=== PATIENT | male | born 1985 | race Hispanic/Latino ===

== ENCOUNTER 2018-11-23 09:58 | Emergency (ER) | payer BC ==
[2018-11-23 10:48] LABS: Absolute Lymphocytes (CBC) 1.9 K/uL (0.7-4.9); Basophils % 0.4 % (0-1.3); Hematocrit 51.6 % (39.6-49.0); Lymphocytes % 20.4 % (15.3-44.8); RBC Red Blood Cell Count 5.83 M/uL (4.33-5.43)
--- NOTE | 2018-11-23 11:18 | RAD REPORT ---
EXAM DESCRIPTION: US - Abdomen Exam Limited - 11/23/2018 11:01 am CLINICAL HISTORY: ABD PAIN COMPARISON: Abdomen Exam Complete dated 01/14/2016 FINDINGS: The gallbladder demonstrates multiple shadowing gallstones. The gallbladder appears quite distended. The gallbladder wall is upper limit of normal measuring 4 mm. The common bile duct is norm al measuring 5 mm. The liver demonstrates no findings of intrahepatic biliary dilatation. IMPRESSION: Cholelithiasis with significantly distended gallbladder and upper limit of normal gallbl adder wall. This raises suspicion for early acute cholecystitis.
[2018-11-23 11:19] LABS: ALT/SGPT 27 U/L (12-78); AST/SGOT 13 U/L (15-37); Albumin 4.4 g/dL (3.4-5.0); Alkaline Phosphatase 71 U/L (45-117); BUN Blood Urea Nitrogen 7 mg/dL (7-18); Bicarbonate 26 mmol/L (21-32); Bilirubin Direct 0.3 mg/dL (0-0.2); Bilirubin Total 1.4 mg/dL (0.2-1.0); Glucose Level 105 mg/dL (74-106); Lipase 65 U/L (73-393); Potassium 3.7 mmol/L (3.5-5.1); Protein, Total 8.5 g/dL (6.4-8.2); Sodium Level 137 mmol/L (136-145)
--- NOTE | 2018-11-23 11:22 | RAD REPORT ---
EXAM DESCRIPTION: CTAbdomen Pelvis W Contrast - 11/23/2018 11:06 am CLINICAL HISTORY: Abdominal pain. ABD PAIN COMPARISON: No comparisons TECHNIQUE: Biphasic CT imaging of the abdomen and pelvis was performed with 100 ml non-ionic IV cont rast. All CT scans are performed using dose optimization technique as appropriate and may include automated exposure control or mA/KV adjustment according to patient size. FINDINGS: The lung bases are clear. Multiple gallstones are present in the gallbladder which appears distended with a small amount of daniella rounding inflammation seen in the pericholecystic fat. The liver, spleen, pancreas, adrenal glands and kidneys are within normal limits. No bowel obstruction, free air, free fluid or abscess. The appendix appears mildly dilated and infla med measuring up to 13 mm. No evidence of significant lymphadenopathy. No suspicious bony findings. IMPRESSION: Cholelithiasis with gallbladder distention and a small amount of pericholecystic inflamm atory changes is suspicious for early/acute cholecystitis. The appendix appears dilated to 13 mm with mild surrounding inflammation suggesting early acute appen dicitis as well. Advise correlation with right lower quadrant symptomology.
--- NOTE | 2018-11-23 12:14 | ER ---
Nurse's Notes [facility] Name: Antwan Martines Age: 33 yrs Sex: Male : 1985 Arrival Date: 11/23/2018 Time: 10:03 Bed 5 Private MD: Osmel Juan S Diagnosis: Abdominal and pelvic pain;Cholelithiasis Presentation: 11/23 10:15 Presenting complaint: Patient states: RUQ pain intermittent since Thursday morning. iw Transition of care: patient was not received from another setting of care. Onset of symptoms was November 21, 2018. Risk Assessment: Do you want to hurt yourself or someone else? Patient reports no desire to harm self or others. Initial Sepsis Screen: Does the patient meet any 2 criteria? No. Patient's initial sepsis screen is negative. Does the patient have a suspected source of infection? No. Patient's initial sepsis screen is negative. Care prior to arrival: None. 10:15 Method Of Arrival: Ambulatory iw 10:15 Acuity: SCARLETT 3 iw Historical: - Allergies: 10:16 No Known Allergies; iw - Home Meds: 10:16 None [Active]; iw - PMHx: 10:16 None; iw - PSHx: 10:16 None; iw - Immunization history:: Adult Immunizations not up to date. - Social history:: Smoking status: Patient/guardian denies using tobacco. - Ebola Screening: : Patient negative for fever greater than or equal to 101.5 degrees Fahrenheit, and additional compatible Ebola Virus Disease symptoms Patient denies exposure to infectious person Patient denies travel to an Ebola-affected area in the 21 days before illness onset No symptoms or risks identified at this time. Screenin:22 Abuse screen: Denies threats or abuse. Nutritional screening: No deficits noted. tw2 Tuberculosis screening: No symptoms or risk factors identified. Fall Risk None identified. Assessment: 10:36 General: Appears in no apparent distress. well groomed, well developed, well nourished, sg Behavior is calm, cooperative, appropriate for age. Pain: Complains of pain in epigastric area Quality of pain is described as aching, "dull and constant". Neuro: Level of Consciousness is awake, alert, obeys commands, Oriented to person, place, time, situation, Moves all extremities. Gait is steady, Speech is normal, Facial symmetry appears normal. Cardiovascular: Patient's skin is warm and dry. Chest pain is denied. Respiratory: Airway is patent Respiratory pattern is regular, symmetrical. GI: Abdomen is round non-distended, Bowel sounds present X 4 quads. Abd is soft and non tender X 4 quads. Reports upper abdominal pain. : No signs and/or symptoms were reported regarding the genitourinary system. EENT: No signs and/or symptoms were reported regarding the EENT system. Derm: Skin is pink, warm \\T\\ dry. Musculoskeletal: Circulation, motion, and sensation intact. Range of motion: intact in all extremities. 12:10 Reassessment: Patient appears in no apparent distress at this time. No changes from tw2 previously documented assessment. Patient and/or family updated on plan of care and expected duration. Pain level reassessed. Patient is alert, oriented x 3, equal unlabored respirations, skin warm/dry/pink. 12:44 Reassessment: Patient appears in no apparent distress at this time. Patient and/or iw family updated on plan of care and expected duration. Pain level reassessed. Patient is alert, oriented x 3, equal unlabored respirations, skin warm/dry/pink. Patient denies pain at this time. Patient states feeling better. Vital Signs: 10:16 BP 146 / 97; Pulse 91; Resp 16; Temp 98.2; Pulse Ox 100% on R/A; Weight 100.7 kg; iw Height 5 ft. 11 in. (180.34 cm); Pain 5/10; 10:43 BP 139 / 98; Pulse 79; Resp 17; Pulse Ox 97% on R/A; sg 12:10 BP 126 / 91; Pulse 77; Resp 17; Pulse Ox 97% on R/A; tw2 10:16 Body Mass Index 30.96 (100.70 kg, 180.34 cm) iw ED Course: 10:03 Patient arrived in ED. cl3 10:05 Osmel Juan MD is Private Physician. cl3 10:06 Bed in low position. Call light in reach. tw2 10:13 Adalid Garcia MD is Attending Physician. kdr 10:16 Triage completed. iw 10:16 Arm band placed on. iw 10:18 Thanh Menendez RN is Primary Nurse. sg 10:20 Inserted saline lock: 20 gauge in right antecubital area, using aseptic technique. sg Blood collected. 10:30 Initial lab(s) drawn, by me, sent to lab. sg 10:[address] Scan, Awaiting: and ultrasound. sg 11:03 US Abdomen Limited In Process Unspecified. EDMS 11:07 CT Abd/Pelvis - IV Contrast Only In Process Unspecified. EDMS 11:45 Consulted physician to see patient. . sg 12:12 Jose Diaz MD is Referral Physician. kdr 12:44 No provider procedures requiring assistance completed. IV discontinued, intact, iw bleeding controlled, No redness/swelling at site. Pressure dressing applied. Administered Medications: No medications were administered Outcome: 12:13 Discharge ordered by . kdr 12:44 Discharged to home ambulatory. iw 12:44 Condition: good 12:44 Discharge instructions given to patient, Instructed on discharge instructions, follow up and referral plans. medication usage, Demonstrated understanding of instructions, follow-up care, medications, Prescriptions given X 4. 12:45 Patient left the ED. iw Signatures: Dispatcher [employer] EDMS Thanh Menendez, RN TOY Adalid Garcia MD MD kdr Kristin Monson, RN TOY iw Sissy Prasad RN RN Brittny Rosenberg3
--- NOTE | 2018-11-23 12:14 | EDPHYS ---
Physician Documentation [facility] Name: Antwan Martines Age: 33 yrs Sex: Male : 1985 Arrival Date: 11/23/2018 Time: 10:03 Bed 5 Private MD: Osmel Juan S ED Physician Adalid Garcia HPI: 11/23 10:27 This 33 yrs old Male presents to ER via Ambulatory with complaints of Pain, kdr Abdominal Pain. 10:27 The patient presents with abdominal pain in the right upper quadrant. Onset: The kdr symptoms/episode began/occurred Thursday morning. The symptoms do not radiate. Associated signs and symptoms: Pertinent positives: nausea and vomiting. The symptoms are described as achy, burning, intermittent, vague, waxing/waning. Modifying factors: The symptoms are alleviated by nothing, the symptoms are aggravated by May be worsened with food. Since Thursday, he has not been eating anything but fruit - he is afraid to eat any other food. Severity of pain: At its worst the pain was moderate in the emergency department the pain has improved moderately, is a 2 / 10. The patient has experienced a previous episode, A few years ago, he had similar problem and was diagnosed with gall stones. The patient has not recently seen a physician. Historical: - Allergies: 10:16 No Known Allergies; iw - Home Meds: 10:16 None [Active]; iw - PMHx: 10:16 None; iw - PSHx: 10:16 None; iw - Immunization history:: Adult Immunizations not up to date. - Social history:: Smoking status: Patient/guardian denies using tobacco. - Ebola Screening: : Patient negative for fever greater than or equal to 101.5 degrees Fahrenheit, and additional compatible Ebola Virus Disease symptoms Patient denies exposure to infectious person Patient denies travel to an Ebola-affected area in the 21 days before illness onset No symptoms or risks identified at this time. ROS: 10:27 Constitutional: Negative for fever, chills, and weight loss, Eyes: Negative for injury, kdr pain, redness, and discharge, ENT: Negative for injury, pain, and discharge, Neck: Negative for injury, pain, and swelling, Cardiovascular: Negative for chest pain, palpitations, and edema, Respiratory: Negative for shortness of breath, cough, wheezing, and pleuritic chest pain, Back: Negative for injury and pain, : Negative for injury, bleeding, discharge, and swelling, MS/Extremity: Negative for injury and deformity, Skin: Negative for injury, rash, and discoloration, Neuro: Negative for headache, weakness, numbness, tingling, and seizure activity. Psych: Negative for depression, anxiety, suicide ideation, homicidal ideation, and hallucinations, Allergy/Immunology: Negative for hives, rash, and allergies, Endocrine: Negative for neck swelling, polydipsia, polyuria, polyphagia, and marked weight changes, Hematologic/Lymphatic: Negative for swollen nodes, abnormal bleeding, and unusual bruising. 10:27 Abdomen/GI: Positive for abdominal pain, nausea and vomiting, Negative for constipation, abdominal cramps, abdominal distension, anorexia, dysphagia, hematemesis, black/tarry stool, rectal pain, rectal bleeding, bowel incontinence. Exam: 10:27 Constitutional: This is a well developed, well nourished patient who is awake, alert, kdr and in no acute distress. Head/Face: Normocephalic, atraumatic. Eyes: Pupils equal round and reactive to light, extra-ocular motions intact. Lids and lashes normal. Conjunctiva and sclera are non-icteric and not injected. Cornea within normal limits. Periorbital areas with no swelling, redness, or edema. Neck: Trachea midline, no thyromegaly or masses palpated, and no cervical lymphadenopathy. Supple, full range of motion without nuchal rigidity, or vertebral point tenderness. No Meningismus. Chest/axilla: Normal chest wall appearance and motion. Nontender with no deformity. No lesions are appreciated. Cardiovascular: Regular rate and rhythm with a normal S1 and S2. No gallops, murmurs, or rubs. Normal PMI, no JVD. No pulse deficits. Respiratory: Lungs have equal breath sounds bilaterally, clear to auscultation and percussion. No rales, rhonchi or wheezes noted. No increased work of breathing, no retractions or nasal flaring. Back: No spinal tenderness. No costovertebral tenderness. Full range of motion. Skin: Warm, dry with normal turgor. Normal color with no rashes, no lesions, and no evidence of cellulitis. MS/ Extremity: Pulses equal, no cyanosis. Neurovascular intact. Full, normal range of motion. Neuro: Awake and alert, GCS 15, oriented to person, place, time, and situation. Cranial nerves II-XII grossly intact. Motor strength 5/5 in all extremities. Sensory grossly intact. Cerebellar exam normal. Normal gait. Psych: Awake, alert, with orientation to person, place and time. Behavior, mood, and affect are within normal limits. 10:27 Abdomen/GI: Inspection: abdomen appears normal, Bowel sounds: normal, Palpation: soft, nontender, in all quadrants, Indicators: McBurney's point is not tender, Davis's sign is negative. Vital Signs: 10:16 BP 146 / 97; Pulse 91; Resp 16; Temp 98.2; Pulse Ox 100% on R/A; Weight 100.7 kg; iw Height 5 ft. 11 in. (180.34 cm); Pain 5/10; 10:43 BP 139 / 98; Pulse 79; Resp 17; Pulse Ox 97% on R/A; sg 12:10 BP 126 / 91; Pulse 77; Resp 17; Pulse Ox 97% on R/A; tw2 10:16 Body Mass Index 30.96 (100.70 kg, 180.34 cm) iw MDM: 10:27 Data reviewed: vital signs, nurses notes, lab test result(s), radiologic studies. kdr Counseling: I had a detailed discussion with the patient and/or guardian regarding: the historical points, exam findings, and any diagnostic results supporting the discharge/admit diagnosis, lab results, radiology results, the need for outpatient follow up. 12:13 Patient medically screened. [facility] 11/23 10:18 Order name: Basic Metabolic Panel; Complete Time: kdr 11/23 10:18 Order name: CBC with Diff; Complete Time: kdr 11/23 10:18 Order name: Creatinine for Radiology; Complete Time: kdr 11/23 10:18 Order name: Hepatic Function; Complete Time: kdr 11/23 10:18 Order name: Lipase; Complete Time: kdr 11/23 10:25 Order name: US Abdomen Limited; Complete Time: kdr 11/23 10:18 Order name: IV Saline Lock; Complete Time: kdr 11/23 10:18 Order name: Labs collected and sent; Complete Time: : kdr 11/23 10:26 Order name: CT Abd/Pelvis - IV Contrast Only; Complete Time: 11:31 kdr Administered Medications: No medications were administered Disposition: 11/23/18 12:13 Discharged to Home. Impression: Abdominal and pelvic pain, Cholelithiasis. - Condition is Stable. - Discharge Instructions: Abdominal Pain, Adult, [id number]. - Prescriptions for Bentyl 20 mg Oral Tablet - take 1 tablet by ORAL route every 6 hours As needed; 20 tablet. Cipro 500 mg Oral Tablet - take 1 tablet by ORAL route every 12 hours for 10 days; 20 tablet. Flagyl 500 mg Oral Tablet - take 1 tablet by ORAL route every 6 hours for 10 days; 40 tablet. Zofran 4 mg Oral Tablet - take 1 tablet by ORAL route every 4-6 hours As needed; 20 tablet. - Medication Reconciliation Form, Thank You Letter, Antibiotic Education, Work release form form. - Follow up: Jose Diaz MD; When: 1 - 2 days; Reason: If symptoms return, Further diagnostic work-up, Recheck today's complaints, Continuance of care, Re-evaluation by your physician. - Problem is new. - Symptoms have improved. Signatures: Dispatcher [employer] EDMS Adalid Garcia MD MD kdr Kristin Monson RN RN iw Corrections: (The following items were deleted from the chart) 12:45 12:13 11/23/2018 12:13 Discharged to Home. Impression: Abdominal and pelvic pain; iw Cholelithiasis. Condition is Stable. Forms are Work release form, Medication Reconciliation Form, Thank You Letter, Antibiotic Education, Prescription Opioid Use. Follow up: Dr. Jose Diaz; When: 1 - 2 days; Reason: If symptoms return, Further diagnostic work-up, Recheck today's complaints, Continuance of care, Re-evaluation by your physician. Problem is new. Symptoms have improved. kdr
--- NOTE | 2018-11-23 17:52 | CON ---
Date of Consultation: 11/23/2018 Reason For Consultation: Abdominal pain. History Of Present Illness: The patient is a 33-year-old gentleman who presented to the emergency ro om with right upper quadrant abdominal pain, started on Thursday associated with nausea. It does not r adiate to the back and he had 1 episode of vomiting. He has had a similar episode in the past, coupl e of years ago, was told he had gallstones at that time. He states that he has been eating fruit bec ause he is afraid the pain would get worse if he eats anything else. He has no sore throat, runny no se, cough, headaches, or dizziness. No chest pain. No fever or chills. No right lower quadrant aminata n at all. Review of Systems: Otherwise unremarkable. Past Medical History: Negative. Past Surgical History: Negative. Allergies: NONE. Social History: Patient does not smoke. Drinks occasionally. Family History: Noncontributory. Physical Examination: VITAL SIGNS: Stable. Blood pressure is slightly elevated at 146/97. He is afebrile. GENERAL: He is awake, alert, and oriented x3. HEAD AND NECK: Cranial nerves 2 through 12 grossly within normal limits. No neck masses. No JVD. Throat clear. NECK: Supple. No evidence of icterus. CHEST: Clear. HEART: S1 and S2. ABDOMEN: Soft, nondistended, very little tenderness in the right upper quadrant. No rebound, rigidi ty, or guarding. No Davis sign. There is no tenderness at all in the right lower quadrant. EXTREMITIES: Adequately perfused. Nontender. NEURO: Nonfocal. Imaging Studies/laboratory Data: Abdominal ultrasound reviewed, shows cholelithiasis with significan tly distended gallbladder and upper limit of normal gallbladder wall, raises suspicion for early acut e cholecystitis. He had abdominal and pelvis CT as well, which showed cholelithiasis with gallbladde r distention, small amount of pericholecystic inflammatory changes suspicious for early acute cholecy stitis. Appendix appears dilated to 13 mm with mild stranding. Inflammation suggesting early acute appendicitis as well. I advised correlation with right lower quadrant symptomatology. His white cou nt is 9.4. There is no left shift. His chemistries reviewed. His AST, ALT, alkaline phosphatase ar e totally normal and lipase is 65. His total bilirubin is 1.4 and direct bilirubin is 0.3. Assessment: A 33-year-old gentleman with probable chronic cholecystitis and cholelithiasis as well a s chronic appendicitis. Recommendation: I advised the patient that he should have a cholecystectomy done today as there is r adiographic evidence of acute appendicitis; however, clinically, he is not in any discomfort at this time. He does not want to do surgery. I advised him of the risk of not doing the surgery. He under stood and he says that he will sleep on it and then he will call my office to make an appointment as an outpatient. Therefore, I discussed the case with the ER physician. We will discharge him with an tibiotics and GI cocktail. I advised him should he get worse, to come back to the emergency room and follow up with me as an outpatient. Again, the risks, benefits, and alternatives of not doing the s urgery were explained in detail to the patient. IVETH/ARTI Voice ID: [id number] Report ID: [id number]
== END 2018-11-23 12:45 | disposition home or self-care (01) ==
LOC: ER 09:58
DX: K80.20 Calculus of gallbladder without cholecystitis without obstruction (principal)
CPT/HCPCS: 36415; 74177; 76705; 80048; 80076; 83690; 85025; 99284; Q9967

== ENCOUNTER 2018-11-24 14:42 | Observation (INO) | payer BC ==
[2018-11-24] MEDS ORDERED: ONDANSETRON 4 MG (ODT) TAB PO PRN (16:00)
[2018-11-24] MEDS ORDERED: NACHLORIDE 0.45% 1,000 ML IV SCH (16:00)
[2018-11-24] MEDS ORDERED: LOPERAMIDE HCL 2 MG CAPSULE PO PRN (16:00)
[2018-11-24] MEDS ORDERED: POLYETHYL GLY 3350 17 GM/DOSE PO PRN (16:00)
[2018-11-24] MEDS ORDERED: DIPHENHYDRAMINE 25 MG TAB/CAP PO PRN (16:00)
[2018-11-24] MEDS ORDERED: PNEUMOCOCCAL VACCINE 0.5 ML IMVAC ONE (16:00)
[2018-11-24 16:14] LABS: Absolute Lymphocytes (CBC) 1.4 K/uL (0.7-4.9); Basophils % 0.3 % (0-1.3); Hematocrit 50.7 % (39.6-49.0); Lymphocytes % 9.3 % (15.3-44.8); MPV 7.7 fL (7.6-11.3); RBC Red Blood Cell Count 5.66 M/uL (4.33-5.43)
[2018-11-24 16:19] LABS: Protime INR 1.11
[2018-11-24] MEDS: CEFTRIAXONE/SWI 1gm 1 GM/10 ML SYR IVP SCH (16:25)
[2018-11-24] MEDS: METRONIDAZOLE 500mg IVPB 500 MG/100 ML BAG IV SCH (16:25)
[2018-11-24 16:56] LABS: Albumin 4.1 g/dL (3.4-5.0); Bilirubin Direct 0.3 mg/dL (0-0.2); Bilirubin Total 1.6 mg/dL (0.2-1.0); Magnesium 2.3 mg/dL (1.8-2.4); Phosphorus 2.3 mg/dL (2.5-4.9); Potassium 3.4 mmol/L (3.5-5.1); Protein, Total 8.2 g/dL (6.4-8.2); Thyroid Stimulating Hormone 1.62 uIU/mL (0.360-3.740)
--- NOTE | 2018-11-24 17:36 | RAD REPORT ---
EXAM DESCRIPTION: RAD - Chest Pa And Lat (2 Views) - 11/24/2018 5:28 pm CLINICAL HISTORY: pre op Chest pain. COMPARISON: <Comparisons> FINDINGS: The lungs are clear. The heart is normal in size. No displaced fractures. IMPRESSION: No acute or concerning finding suspected.
[2018-11-24 18:32] LABS: Urine Appearance CLEAR; Urine Bilirubin NEGATIVE (NEG); Urine Blood NEGATIVE (NEG); Urine Color YELLOW; Urine Glucose NEGATIVE (NEG); Urine Protein NEGATIVE (NEG); Urine Specific Gravity <=1.005 (1.005-1.030); Urine Urobilinogen 0.2 mg/dL (0.2-1.0); Urine pH 6.5 (5.0-7.0)
[2018-11-24 19:16] LABS: Urine Microscopic Reflex NO UMIC
[2018-11-24] MEDS ORDERED: ONDANSETRON 4 MG/2 ML VIAL IV PRN (21:41)
--- NOTE | 2018-11-24 22:09 | EKG ---
Test Date: 2018-11-24 Test Time: 17:54:08 Trimmer Sawyer: CHAU MEASUREMENT RESULTS: Intervals: Rate: 74 OR: 124 QRSD: 110 QT: 396 QTc: 439 [place]: P: 9 OR: 124 QRS: 38 T: -21 INTERPRETIVE STATEMENTS: Normal sinus rhythm Inferior infarct, age undetermined Abnormal ECG No previous ECG available for comparison Electronically Signed On 11-24-18 22:08:40 CDT by Ty Reilly
[2018-11-24] MEDS: ONDANSETRON 4 MG/2 ML VIAL IV PRN (22:22)
[2018-11-24] MEDS: HYDROMORPHONE HCL 2 MG/ML inj IV PRN (22:22)
[2018-11-25] MEDS: METRONIDAZOLE 500mg IVPB 500 MG/100 ML BAG IV SCH ×3 (01:23→16:49)
[2018-11-25] MEDS: ONDANSETRON 4 MG/2 ML VIAL IV PRN (03:52)
[2018-11-25] MEDS: HYDROMORPHONE HCL 2 MG/ML inj IV PRN (03:52)
[2018-11-25 06:08] LABS: Absolute Lymphocytes (CBC) 1.1 K/uL (0.7-4.9); Basophils % 0.1 % (0-1.3); Hematocrit 46.4 % (39.6-49.0); Lymphocytes % 6.8 % (15.3-44.8); MPV 8.3 fL (7.6-11.3); RBC Red Blood Cell Count 5.23 M/uL (4.33-5.43)
[2018-11-25 06:23] LABS: BUN Blood Urea Nitrogen 9 mg/dL (7-18); Bicarbonate 28 mmol/L (21-32); Glucose Level 116 mg/dL (74-106); Magnesium 2.3 mg/dL (1.8-2.4); Potassium 3.9 mmol/L (3.5-5.1); Sodium Level 138 mmol/L (136-145)
[2018-11-25] MEDS ORDERED: FENTANYL CITR 100 MCG/2 ML ONE ×2 (07:33→08:45)
[2018-11-25] MEDS ORDERED: PROPOFOL 200 MG/20 ML VIAL IV ONE (07:34)
[2018-11-25] MEDS ORDERED: MIDAZOLAM HCL 2 MG/2 ML INJ ONE (07:35)
[2018-11-25] MEDS ORDERED: ONDANSETRON 4 MG/2 ML VIAL ONE (07:35)
[2018-11-25] MEDS ORDERED: LIDOCAINE 2% MPF 5 ML VIAL ONE (07:35)
[2018-11-25] MEDS ORDERED: ROCURONIUM 50 MG/5 ML VIAL IV ONE (07:36)
[2018-11-25] MEDS ORDERED: CEFOXITIN/SWI 1gm 1 GM/10 ML SYR IV SCH (07:45)
[2018-11-25] MEDS ORDERED: Ringers Lactate 1,000 ML IV ONE ×2 (07:50→09:39)
[2018-11-25] MEDS ORDERED: CEFOXITIN SODIUM 1 GM/VIAL IVPB SCH ×2 (08:00→12:00)
--- NOTE | 2018-11-25 08:12 | PREOPCON ---
Date of Consultation: 11/24/2018 Reason For Consultation: Abdominal pain. History Of Present Illness: The patient is 33-year-old gentleman we saw in the emergency room 2 days ago with acute cholecystitis, cholelithiasis, and appendicitis. He was advised to have surgery, but he refused and went home, and then he went to Dr. Dorantes's office yesterday and was admitted and I wa s consulted. He is awake and alert. He is complaining of right-sided pain, not too bad in the right upper quadrant. No pain in the right lower quadrant, no nausea, no vomiting. No fever. No chills. No diarrhea or constipation. No blood in his stool. No dysuria or hematuria. No sore throat, run ny nose, cough, headaches, or dizziness. No chest pain. Mild anorexia. Review of Systems: Otherwise unremarkable. Past Medical History: Negative. Past Surgical History: Negative. Allergies: NO ALLERGIES. Social History: Denies smoking, drinks occasionally. Family History: Noncontributory. Physical Examination: Vital signs: Stable. Currently afebrile. He is awake, alert, oriented x3. Head and Neck: Cranial nerves 2 through 12 are grossly within normal limits. Neck: No neck masses. No JVD. Throat clear. Neck is supple. Chest: Clear. Heart: S1, S2. Abdomen: Soft, nondistended. Positive bowel sounds. Positive right upper quadrant tenderness. No rebound, rigidity, or guarding. No tenderness in the right lower quadrant. Extremities: Adequately perfused. Nontender. Neuro: Nonfocal. Laboratory Data: White count is elevated. LFTs are within normal limits except for just mild elevat ion of total bilirubin and direct bilirubin. Also, the CAT scan of the abdomen and pelvis reviewed i n detail and it showed acute cholecystitis, cholelithiasis and probably chronic appendicitis but ther e could be an acute component as well. Assessment: Acute cholecystitis, cholelithiasis, appendicitis. Plan: Admit, n.p.o., IV fluid, IV antibiotic, to the OR for lap appy, lap brandon, possible open. The patient and understand the risks, benefits, and alternatives and agrees to procedure. IVETH/MODL Voice ID: [id number] Report ID: [id number]
[2018-11-25] MEDS: CEFTRIAXONE/SWI 1gm 1 GM/10 ML SYR IVP SCH (09:00)
[2018-11-25] MEDS ORDERED: GLYCOPYRROLATE 0.2 MG/ML SYR ONE (09:41)
[2018-11-25] MEDS ORDERED: NEOSTIGMINE 1 MG/ML -10 ML VIAL ONE (09:41)
--- NOTE | 2018-11-25 10:05 | P.OP ---
Feeder Switchboard Operator: Alan GROVES Preoperative diagnosis: Acute Cholecystitis, Cholelithiasis, Appendicitis Postoperative diagnosis: same Primary procedure: Lap Sparkle, Lap Appy Anesthesia: General Estimated blood loss: 200cc Specimen: GB, Appy Findings: as above Complications: None Drain(s): GRISEL drain Transferred to: Recovery Room Condition: Good
[2018-11-25] MEDS: HYDROMORPHONE HCL 1 MG/ML INJ ONE ×2 (10:28→10:33)
[2018-11-25] MEDS: Ringers Lactate 1,000 ML IV SCH ×2 (11:00→14:49)
[2018-11-25] MEDS: CEFOXITIN/SWI 1gm 1 GM/10 ML SYR IV SCH ×2 (11:36→17:25)
[2018-11-25] MEDS: ACETAMINOPHEN 325 MG TABLET PO PRN (11:47)
[2018-11-25 12:05] LABS: Absolute Lymphocytes (CBC) 0.8 K/uL (0.7-4.9); Basophils % 0.3 % (0-1.3); Hematocrit 43.6 % (39.6-49.0); Lymphocytes % 5.7 % (15.3-44.8); MPV 8.3 fL (7.6-11.3); RBC Red Blood Cell Count 4.92 M/uL (4.33-5.43)
[2018-11-25 13:42] LABS: Blood Morphology Comment NOT SEEN (NOT SEEN); Platelet Estimate ADEQ; Urine White Blood Cell Casts OK
[2018-11-25] MEDS: HYDROCODONE/APAP 7.5/325 MG TAB PO PRN (14:48)
--- NOTE | 2018-11-25 21:28 | P.PN ---
Subjective Date of Service: 11/25/18 Chief Complaint: POST OP, DOING A LOT BETTER. Subjective: Improving HE HAS NO PAIN, NO FEVER, NO NAUSEA OR VOMITING. Review of Systems 10-point ROS is otherwise unremarkable General: Weakness Physical Examination - Vital Signs Temperature: 98.7 F Blood Pressure: 128/80 Pulse: 76 Respirations: 17 Pulse Ox (%): 95 - Physical Exam General: Alert, Mild distress HEENT: Atraumatic, PERRLA, EOMI Neck: Supple, JVD not distended Respiratory: Clear to auscultation bilaterally, Normal air movement Cardiovascular: Regular rate/rhythm, Normal S1 S2 Gastrointestinal: Hypoactive, Tenderness (POST OP) Musculoskeletal: No tenderness Integumentary: No rashes Neurological: Normal speech, Normal tone, Normal affect Lymphatics: No axilla or inguinal lymphadenopathy - Studies Laboratory Data (last 24 hrs) 11/25/18 11:50: WBC 14.6 H, Hgb 14.8, Hct 43.6, Plt Count 175 11/25/18 05:15: Sodium 138, Potassium 3.9, BUN 9, Creatinine 0.87, Glucose 116 H , Magnesium 2.3 11/25/18 05:15: WBC 16.1 H, Hgb 15.9, Hct 46.4, Plt Count 183 Medications List Reviewed: Yes Assessment And Plan - Current Problems (Diagnosis) (1) Acute cholecystitis Current Visit: Yes Status: Acute Plan: I CALLED DR. EDWARDS YESTERDAY PATIENT HAD AGREED FOR SURGERY. HE WAS IN ER AND HAD REFUSED TO GET ADMITTED. HE HAD NO PAIN ON PALPATION SO HE WAS IN DENIAL. AFTER TALKING TO HIM IN DETAIL, HE CALLED HIS FATHER AND AGREED FOR SURGERY. PER DR. EDWARDS HE HAD GALL BLADDER WAS ABOUT FOOT LONG, NEVER SEEN THIS BADLY INFECTED GB WITH ALMOST NO SS. HE IS DOING GOOD POST SURGICALLY. (2) Acute appendicitis Current Visit: Yes Status: Acute Plan: AGAIN, WITH NO SYMPTOMS BUT HAD PUS IN IT PER DR. EDWARDS. REMOVED TODAY.
--- NOTE | 2018-11-25 21:33 | OP ---
Date of Procedure: 11/25/2018 Surgeon: Jose Diaz MD [employer] Patterns: GERMAIN Montoya Preoperative Diagnoses: Acute cholecystitis, cholelithiasis, and appendicitis. Postoperative Diagnoses: Acute cholecystitis, cholelithiasis, and appendicitis. Procedure: Laparoscopic cholecystectomy, laparoscopic appendectomy. Estimated Blood Loss: 200 cc. Specimen: Gallbladder and appendix. Findings: As above. Anesthesia: General. Complications: None. Drains: GRISEL #10 flat x1. Disposition: Patient tolerated the procedure in stable condition and taken to Recovery in good gener al condition. Description Of Procedure: Patient was brought to the OR and placed in supine position. General anes thesia was begun. The patient was prepped and draped in usual sterile fashion. Marcaine 0.5% was in filtrated locally. A 15-blade was used to make a 2 cm supraumbilical midline incision. Subcutaneous tissue divided. The fascia was identified and divided. A #1 Vicryl stay suture was placed. Perito sushila cavity was entered with sharp and blunt dissection. A 12 mm trocar was placed into the peritone al cavity under direct vision. Pneumoperitoneum was established. Then, three 5 mm trocars were plac ed, 1 in the epigastrium just to the right of midline and 2 in the right subcostal region. Laparosco py revealed a very large distended gallbladder. This was aspirated of pus and then fundus was retrac caden superiorly. There was considerable bleeding noted from the liver bed. When the dissection took place, cautery and Surgicel were utilized as needed. The infundibulum was identified and retracted i nferolaterally. The cystic duct and cystic artery were clearly identified with blunt dissection. Cl ips were placed. Both structures divided. Then, cautery was used to remove the gallbladder from the liver bed. There was bleeding noted on the liver bed because of the acute inflammation. The gallbl adder wall was very thick, approximately an inch in thickness and the bleeding was controlled with ca utery. There was no evidence of any active bleeding, but there was some oozing noted. After the gal lbladder was removed from the liver bed, then the midline incision had to be extended as the gallblad mayo was almost a foot long and an inch thickness, so the incision was extended to approximately 3 inc hes above the umbilicus to get the gallbladder out and then the fascia was closed back with #1 Vicryl running suture to allow for seal with the 12 mm trocar and right upper quadrant was irrigated until the effluent was clear. There was oozing noted on the liver bed. Surgicel was applied. Bleeding wa s stopped. No evidence of oozing was noted. Jus-Orta drain #10 flat was placed, secured with 3 -0 nylon at the end of the case. After the Surgicel was placed, then the attention was taken to the appendix, which was in the right lower quadrant. Base of the appendix and mesoappendix clearly ident ified. Endo-NUNO stapling device was used to divide both structures. There was bleeding noted from t he appendiceal artery, which was controlled with vascular clips. The appendix was removed via EndoCa tch bag. The right lower quadrant and pelvis were thoroughly irrigated. Effluent was clear. There was no evidence of any bleeding or bowel injury appreciated. Then right upper quadrant was examined again and there was no further evidence of bleeding noted there. The Jus-Orta drain #10 flat wa s placed and secured with 2 nylon and the drain was in the right subhepatic space. Subsequently, all trocars were removed under direct vision. Stay sutures were tied to each other to reapproximate the fascial defect. Subcutaneous wounds were irrigated. Bleeding controlled with cautery. A 3-0 chrom ic was used to approximate the subcutaneous tissues and mikki used to close skin. Sterile dressing was applied. The patient was awakened and taken to Rec overy in good general condition. IVETH/MODL Voice ID: [id number] Report ID: [id number]
[2018-11-26] MEDS: METRONIDAZOLE 500mg IVPB 500 MG/100 ML BAG IV SCH ×3 (01:07→16:27)
[2018-11-26] MEDS: CEFOXITIN/SWI 1gm 1 GM/10 ML SYR IV SCH ×4 (01:07→17:21)
[2018-11-26] MEDS: Ringers Lactate 1,000 ML IV SCH ×2 (01:07→12:31)
[2018-11-26] MEDS: ACETAMINOPHEN 325 MG TABLET PO PRN (01:23)
[2018-11-26 06:30] LABS: Absolute Lymphocytes (CBC) 1.6 K/uL (0.7-4.9); Basophils % 0.2 % (0-1.3); Hematocrit 38.2 % (39.6-49.0); MPV 8.2 fL (7.6-11.3); RBC Red Blood Cell Count 4.29 M/uL (4.33-5.43)
[2018-11-26 06:52] LABS: BUN Blood Urea Nitrogen 8 mg/dL (7-18); Bicarbonate 30 mmol/L (21-32); Glucose Level 105 mg/dL (74-106); Magnesium 2.4 mg/dL (1.8-2.4); Potassium 3.8 mmol/L (3.5-5.1); Sodium Level 141 mmol/L (136-145)
[2018-11-26] MEDS: HYDROCODONE/APAP 7.5/325 MG TAB PO PRN (08:33)
--- NOTE | 2018-11-27 08:04 | DS ---
Date of Discharge: 11/26/2018 Admitting Diagnoses: Acute cholecystitis, cholelithiasis and appendicitis. Discharge Diagnoses: Acute cholecystitis, cholelithiasis and appendicitis. Procedure Performed: Laparoscopic cholecystectomy, laparoscopic appendectomy. Hospital Course: Patient is 33-year-old gentleman who underwent the aforementioned procedure yesterd ay. Postop, will be restarted on diet, ambulating, pain controlled with p.o. pain medication. GRISEL is putting out serosanguineous fluid. His H and H are stable and therefore patient will be discharged to home. Disposition: Home. Condition: Stable. Discharge Instructions: Resume home medications and diet. Activity as tolerated. No heavy lifting. Remove outer dressing in a.m. Shower. Keep wound clean and dry. Record GRISEL output q.12, bring rec ord to our office. Cipro 500 mg p.o. q.12, Flagyl 500 mg p.o. q.6, Tylenol No. 3 one tablet p.o. q.4 p.r.n. pain. IVETH/ARTI Voice ID: [id number] Report ID: [id number]
== END 2018-11-26 18:08 | disposition home or self-care (01) ==
LOC: 4TH 14:57
PROVIDERS: ADMIT Internal Medicine; ATTEND Family Medicine
PROC: 0DTJ4ZZ Resection of Appendix, Percutaneous Endoscopic Approach (ICD-10-PCS; principal; 2018-11-25 07:30)
PROC: 0FT44ZZ Resection of Gallbladder, Percutaneous Endoscopic Approach (ICD-10-PCS; 2018-11-25 07:30)
DX: K80.12 Calculus of gallbladder with acute and chronic cholecystitis without obstruction (principal); K35.80 Unspecified acute appendicitis; K36 Other appendicitis; R94.31 Abnormal electrocardiogram [ECG] [EKG]
CPT/HCPCS: 47562; 44970; 93005; 87088; 85025 ×4; 80048 ×3; 36415 ×3; 83735 ×3; 84100; 85610; 80076; 88304; 85730; 84443; 81003; 82607; 82306; 71046; J2704; J2710; J2250; J1170 ×3; J3010 ×2; J0696; J2405 ×3; G0378 ×2; 87086